=== PATIENT | female | born 1955 | race Caucasian/White ===

== ENCOUNTER 2019-11-01 10:19 | Outpatient (CLI) | payer OTHER ==
--- NOTE | 2019-11-01 10:50 | RAD ---
RADIOGRAPH LUMBAR SPINE 3 VIEWS: DATE: 11/01/2019 HISTORY: 64-year-old female with nontraumatic low back pain FINDINGS: 5 lumbar-type vertebrae. Vertebral body heights are maintained. Mild levoscoliosis, with apex of curv ature at approximately L2. Moderate right-sided degenerative disc disease at L1-2 and L2-3 along the concavity of the curvature, and mild to moderate degenerative disc disease on the left at L4-5 vonda mbar concavity of the counter curvature. No major spondylolisthesis. Rotary component of scoliosis. IMPRESSION: Lumbar spondylosis associated with rotary levoscoliosis of upper lumbar spine.
--- NOTE | 2019-11-01 10:55 | RAD ---
Radiograph thoracic spine 2 views: HISTORY: 64-year-old female with nontraumatic mid back pain FINDINGS: Approximately 15 degree dextroscoliosis of mid to lower thoracic spine. Vertebral body heights are ma intained. Pedicles appear to be grossly intact. No high-grade degenerative disc disease identified. Diffuse osteopenia. IMPRESSION: 1. No compression fracture. 2. Mild dextroscoliosis.
--- NOTE | 2019-11-01 11:47 | RAD ---
CHEST 2 VIEWS: Date: 11/01/2019 INDICATION: History of chest pain at rest. COMPARISON: Prior exam dated 06/05/2015. FINDINGS: Chronic lung changes are stable appearing. Heart size is within normal limits. No air space opacity o r pleural effusion is evident. No acute osseous abnormality is noted. IMPRESSION: No acute cardiopulmonary abnormality. POS: [facility]
== END 2019-11-01 10:20 | disposition home or self-care (01) ==
LOC: MADEKG 10:19
PROVIDERS: ATTEND Family Medicine
DX: M54.6 Pain in thoracic spine (principal); R07.9 Chest pain, unspecified; M41.9 Scoliosis, unspecified; M47.816 Spondylosis without myelopathy or radiculopathy, lumbar region
CPT/HCPCS: 71046; 72070; 72100; 93005; 93010

== ENCOUNTER 2019-11-04 15:48 | Outpatient (CLI) | payer OTHER ==
[2019-11-04 16:33] LABS: Troponin I Less than 0.010 ng/mL (< 0.028)
== END 2019-11-04 15:49 | disposition home or self-care (01) ==
LOC: MADLAB 15:48
PROVIDERS: ATTEND Family Medicine
DX: R07.9 Chest pain, unspecified (principal)
CPT/HCPCS: 82553; 84484

== ENCOUNTER 2021-08-16 15:48 | Emergency (ER) | payer MEDICARE, OTHER ==
[2021-08-16 16:40] LABS: #Basophils 0.1 thou/uL (0.0-0.2); #Eosinphils 0.2 thou/uL (0.0-0.7); #Lymphocytes 2.7 thou/uL (1.20-3.40); #Monocytes 0.5 thou/uL (0.11-0.59); #Neutrophils 4.1 thou/uL (1.40-6.50); %Basophils 1.7 % (0.0-1.0); %Eosinophils 2.6 % (0.0-10.0); %Lymphocytes 35.3 % (21.0-51.0); %Neutrophils 54.3 % (42.0-75.0); Hemoglobin 14.5 g/dL (12.0-16.0); Mean Corpuscular HGB CONC 34.1 g/dL (32.0-36.0); Mean Corpuscular Hemoglobin 31.4 pg (27.0-31.0); Mean Corpuscular Volume 92.1 fL (78.0-98.0); Mean Platelet Volume 6.1 fL (7.4-10.4); Platelet Count 279 thou/uL (130-400); RBC Distribution Width 11.6 % (11.5-14.5); Red Blood Cell (RBC) Count 4.62 mill/uL (4.20-5.40); White Blood Cell (WBC) Count 7.5 thou/uL (4.8-10.8)
[2021-08-16 16:48] LABS: Bilirubin Negative (Negative); Blood, Urine Trace (Negative); Glucose, Urine (Dipstick) Negative (Negative); Ketone, Urine Negative (Negative); Leukocyte Trace (Negative); Nitrite Negative (Negative); Protein, Urine (Dipstick) Negative (Neg-Trace); Specific Gravity, Urine 1.015 (1.005-1.030); Urobilinogen 0.2 mg/dL (Less than 2)
[2021-08-16 16:54] LABS: ALT (SGPT) 22 U/L (8-55); AST (SGOT) 17 U/L (5-34); Alkaline Phosphatase 89 U/L (40-110); Anion Gap 14 mmol/L (10-20); BUN (Urea Nitrogen) 18 mg/dL (9.8-20.1); Bilirubin, Total 0.3 mg/dL (0.2-1.2); Calc. Creatinine Clearance 0 mL/min (70-130); Carbon Dioxide 24 mmol/L (23-31); Chloride 106 mmol/L (98-107); Glucose 84 mg/dL (80-115); Sodium 140 mmol/L (136-145)
[2021-08-16 16:56] LABS: Bacteria/HPF 3+ HPF (None Seen); Clarity Hazy (Clear); RBC/HPF 0-3 HPF (0-3); Squamous Epithelial 0-3 HPF (0-3)
== END 2021-08-16 19:23 | disposition home or self-care (01) ==
LOC: MADERS 15:48
DX: F43.0 Acute stress reaction (principal); F41.9 Anxiety disorder, unspecified; F17.210 Nicotine dependence, cigarettes, uncomplicated; Z79.899 Other long term (current) drug therapy
CPT/HCPCS: 36415; 71045; 80053; 81003; 81015; 83735; 83880; 84443; 84484; 85025; 93005

== ENCOUNTER 2021-09-24 09:16 | Outpatient (CLI) | payer MEDICARE, OTHER | END 2021-09-24 09:17 | disposition home or self-care (01) | LOC: MADRAD 09:16 | PROVIDERS: ATTEND Family Medicine | DX: R07.81 Pleurodynia (principal) ==